=== PATIENT | female | born 1980 | race American Indian/Alaskan Native ===

== ENCOUNTER 2017-02-17 08:19 | Outpatient (CLI) | payer BC ==
[2017-02-17 08:33] LABS: Hematocrit 37.4 % (30.3-42.9); Hemoglobin 12.2 gm/dl (10.1-14.3); Mean Corpuscular HGB Conc 33 % (30-34); Platelet Count 430 K/mm3 (140-440); Red Blood Count 5.45 M/mm3 (3.65-5.03); White Blood Count 10.6 K/mm3 (4.5-11.0)
[2017-02-17 08:50] LABS: Mean Corpuscular Hemoglobin 22 pg (28-32); Mean Corpuscular Volume 69 fl (79-97)
[2017-02-17 09:00] LABS: Alanine Aminotransferase 16 units/L (7-56); Albumin 3.8 g/dL (3.9-5); Albumin/Globulin Ratio 1.2 %; Alkaline Phosphatase 93 units/L (35-129); Anion Gap 18 mmol/L; BUN/Creatinine Ratio 17.14; Bilirubin,Total 0.3 mg/dL (0.1-1.2); Blood Urea Nitrogen 12 mg/dL (7-17); Calcium 8.7 mg/dL (8.4-10.2); Carbon Dioxide 20 mmol/L (22-30); Chloride 105.1 mmol/L (98-107); Cholesterol 124 mg/dL (50-199); Glucose 102 mg/dL (65-100); HDL Cholesterol 53 mg/dL (40-59); LDL Cholesterol,Direct 57 mg/dL (50-130); Potassium 3.8 mmol/L (3.6-5.0); Sodium 139 mmol/L (137-145); Triglycerides 70 mg/dL (2-149)
== END 2017-02-17 08:20 | disposition home or self-care (01) ==
LOC: LABHHL 08:19
PROVIDERS: ATTEND Specialist
DX: Z01.812 Encounter for preprocedural laboratory examination (principal); K30 Functional dyspepsia
CPT/HCPCS: 36415; 80053; 80061; 85027